=== PATIENT | male | born 1940 | race Caucasian/White ===

== ENCOUNTER 2017-12-20 10:55 | Inpatient (IN) | payer OTHER ==
[2017-12-20 11:09] VITALS: BMI 32.5
--- NOTE | 2017-12-20 11:16 | DR.GIBLEED ---
HPI - Time Seen Time seen: 11:00 - Primary Care Physician Primary Care Physician: STEPHY HEDRICK - Complaints Chief Complaint Doctors Comments: Patient presented to the ED for evaluation of vomiting of bright red blood and black stools for two days. He reports that he had a GI work up due to the hematemesis and dark stools two days ago. Patient states that two days prior he started coughing due to a piece of rich caught in the lower esophagus then the bleeding started. Patient admits to taking ibuprofen and acetaminophen prior to getting his tooth extracted two weeks prior to the UGI. Chief Complaint:: PT. C/O VOMITING BRIGHT RED BLOOD AND HAVING BLACK TARRY STOOLS SINCE YESTERDAY. PT. VOMITING BRIGHT RED BLOOD AT TIME OF ARRIVAL TO ER. DENIES PAIN. - Source History Provided: Patient, EMS - Mode of Arrival Mode of Arrival: EMS - Timing Onset of Chief Complaint: 12/19/17 PMH - PMH Past Medical History: Yes Past Medical History: Diabetes, Hypertension, Kidney Stones Past Surgical History: Yes Surgical History: Tonsillectomy, Other Past Surgical History Comment: PROSTATE SURGERY - Family History History of Family Medical Conditions: Yes Family Medical History: Diabetes Mellitus, Hypertension - Social History Does patient currently use any type of tobacco product: No Have you used tobacco products in the last 12 months: No Type of Tobacco Use: None Does any household member use tobacco: No Alcohol Use: None Do you use any recreational Drugs:: No Lives With: Spouse Lives Where: Home - infectious screening In the last 2 months have you had wt loss of >10#?: NO Have you had fever, night sweats or hemotysis?: No Have you traveled outside the country in the last 6 months?: No Isolation: Standard ROS - Review of Systems Eyes: No Symptoms Reported ENTM: No Symptoms Reported, Hearing Loss Cardiovascular: No Symptoms Reported Gastrointestinal/Abdominal: No Symptoms Reported Genitourinary: No Symptoms Reported Neurological: No Symptoms Reported Musculoskeletal: No Symptoms Reported Integumentary: No Symptoms Reported Hematologic/Lymphatic: No Symptoms Reported Endocrine: No Symptoms Reported Psychiatric: No Symptoms Reported All Other Systems: Reviewed and Negative PE - Vital Signs Vitals: Temperature 97 F Pulse Rate [Apical] 113 Pulse Rate 114 Respiratory Rate 17 Blood Pressure [Left Arm] 119/59 Blood Pressure 132/58 O2 Sat by Pulse Oximetry 95 - General Limitations: No Limitations General Appearance: Alert, Anxious - Head Head Exam: Normal Inspection, Atraumatic - Eyes Eye exam: Normal Appearance, PERRL, EOMI - ENT ENT Exam: Normal Exam - Neck Neck Exam: Normal Inspection, Full ROM - Chest Chest Inspection: Normal Inspection, Symmetric Chest Wall Rise - Cardiovascular Cardiovascular Exam: Regular Rate, Normal Rhythm - Abdominal Exam Abdominal Exam: Normal Inspection, Normal Bowel Sounds Abdominal Tenderness: negative: RUQ, RLQ, LUQ, LLQ, Epigastrium, Suprapubic, Diffuse, Mild, Moderate, Severe, Other - Extremities Extremities Exam: Normal Inspection, Full ROM. negative: Edema - Back Back Exam: Normal Inspection, Full ROM - Neurologic Neurological Exam: Alert, Oriented X3, CN II-XII Intact - Psychiatric Psychiatric Exam: Normal Affect, Normal Mood - Skin Skin Exam: Warm, Dry, Intact Course - Reevaluation 1st: Improved - Consultation Called: 12:10 (Dr Mendez agreed to admit for further treatment) ROR - Labs Reviewed Laboratory Results Reviewed?: Yes Result Diagrams: 12/20/17 11:19 12/20/17 11:19 Laboratory: WBC 16.0 X10^3/uL (3.6-10.0) H 12/20/17 11:19 RBC 2.85 X10^6/uL (4.7-6.0) L 12/20/17 11:19 Hgb 8.2 g/dL (13.5-18.0) L 12/20/17 11:19 Hct 24.2 % (42.0-54.0) L 12/20/17 11:19 MCV 85.0 fL (80.0-100.0) 12/20/17 11:19 MCH 28.6 pg (27.0-34.0) 12/20/17 11:19 MCHC 33.7 g/dL (33.0-35.0) 12/20/17 11:19 RDW 15.6 % (11.6-16.5) 12/20/17 11:19 Plt Count 166 X10^3/uL (150.0-450.0) 12/20/17 11:19 MPV 10.0 fL (7.4-11.0) 12/20/17 11:19 Neut % 58.1 % (42.0-75.0) 12/20/17 11:19 Lymph % 32.9 % (21.0-51.0) 12/20/17 11:19 [place] % 7.7 % (0.0-13.0) 12/20/17 11:19 Eos % 0.1 % (0.9-2.9) L 12/20/17 11:19 Baso % 1.2 % (0.2-1.0) H 12/20/17 11:19 Neut # 9.3 x10^3/uL (2.2-4.8) H 12/20/17 11:19 Lymph # 5.3 X10^3/uL (1.3-2.9) H 12/20/17 11:19 [place] # 1.2 x10^3/uL (0.3-0.8) H 12/20/17 11:19 Eos # 0.0 x10^3/uL (0.0-0.2) 12/20/17 11:19 Baso # 0.2 X10^3/uL (0.0-0.1) H 12/20/17 11:19 Absolute Nucleated RBC 0.0 /100WBC 12/20/17 11:19 INR Target Range - 12/20/17 11:19 INR 1.15 (0.8-1.3) 12/20/17 11:19 PTT 26.7 SECONDS (22.9-36.5) 12/20/17 11:19 PTT Comment - 12/20/17 11:19 Sodium 138 mmol/L (136-145) 12/20/17 11:19 Corrected Sodium 144 mmol/L (136-145) 12/20/17 11:19 Potassium 5.8 mmol/L (3.5-5.1) H 12/20/17 11:19 Chloride 103 mmol/L (98-107) 12/20/17 11:19 Carbon Dioxide 23.0 mmol/L (21-32) 12/20/17 11:19 BUN 82 mg/dL (7-18) H 12/20/17 11:19 Creatinine 1.80 mg/dL (0.70-1.30) H 12/20/17 11:19 Est GFR (MDRD) Af Amer 47 (>60) L 12/20/17 11:19 Est GFR (MDRD) Non-Af 39 (>60) L 12/20/17 11:19 Glucose 359 mg/dL (65-99) H 12/20/17 11:19 Calcium 8.9 mg/dL (8.5-10.1) 12/20/17 11:19 Corrected Calcium 10.2 mg/dL (8.5-10.1) H 12/20/17 11:19 Total Bilirubin 0.40 mg/dL (0.2-1.0) 12/20/17 11:19 AST 33 Units/L (15-37) 12/20/17 11:19 ALT 29 Units/L (12-78) 12/20/17 11:19 Alkaline Phosphatase 71 Units/L (46-116) 12/20/17 11:19 Total Protein 6.2 g/dL (6.4-8.2) L 12/20/17 11:19 Albumin 2.4 g/dL (3.4-5.0) L 12/20/17 11:19 Globulin 3.8 g/dL (2.5-4.5) 12/20/17 11:19 Albumin/Globulin Ratio 0.6 Ratio (1.1-2.1) L 12/20/17 11:19 Stool Description Y 12/20/17 11:23 Stl Occult Blood (IFOB) Positive (NEGATIVE) A 12/20/17 11:23 Blood Type O POSITIVE 12/20/17 11:19 Antibody Screen Negative 12/20/17 11:19 Crossmatch See Detail 12/20/17 11:19 - Diagnosis Discharge Problem: Hyperkalemia, Dehydration GI bleed Qualifiers: GI bleed type/associated pathology: unspecified gastrointestinal hemorrhage type Qualified Code(s): K92.2 - Gastrointestinal hemorrhage, unspecified ARF (acute renal failure) Qualifiers: Acute renal failure type: unspecified Qualified Code(s): N17.9 - Acute kidney failure, unspecified - Discharge Plan Condition: Stable - Follow ups/Referrals Follow ups/Referrals: STEPHY HEDRICK [Primary Care Provider] - 3 days - Instructions
[2017-12-20 11:26] LABS: BASOPHILS # (AUTO) 0.2 X10^3/uL (0.0-0.1); BASOPHILS % (AUTO) 1.2 % (0.2-1.0); EOSINOPHILS % (AUTO) 0.1 % (0.9-2.9); HEMATOCRIT 24.2 % (42.0-54.0); HEMOGLOBIN 8.2 g/dL (13.5-18.0); LYMPHOCYTES # (AUTO) 5.3 X10^3/uL (1.3-2.9); LYMPHOCYTES % (AUTO) 32.9 % (21.0-51.0); MEAN CORPUSCULAR HEMOGLOBIN 28.6 pg (27.0-34.0); MEAN CORPUSCULAR HGB CONC 33.7 g/dL (33.0-35.0); MONOCYTES # (AUTO) 1.2 x10^3/uL (0.3-0.8); MONOCYTES % (AUTO) 7.7 % (0.0-13.0); NEUTROPHILS # (AUTO) 9.3 x10^3/uL (2.2-4.8); NEUTROPHILS % (AUTO) 58.1 % (42.0-75.0); PLATELET COUNT 166 X10^3/uL (150.0-450.0); RED BLOOD COUNT 2.85 X10^6/uL (4.7-6.0); RED CELL DISTRIBUTION WIDTH 15.6 % (11.6-16.5)
[2017-12-20] MEDS ORDERED: ZOFRAN INJ 4 MG VIAL IVP ONE (11:32)
[2017-12-20] MEDS ORDERED: ZOFRAN INJ 4 MG VIAL ONE (11:32)
[2017-12-20] MEDS ORDERED: NS 1000 ML 1,000 ML ONE (11:32)
[2017-12-20] MEDS ORDERED: PROTONIX INJ 40 MG VIAL ONE (11:33)
[2017-12-20] MEDS ORDERED: NS 100 ML IV 100 ML IV ONE (11:33)
[2017-12-20 11:36] LABS: ALBUMIN 2.4 g/dL (3.4-5.0); CALCIUM 8.9 mg/dL (8.5-10.1); COR CA(FOR HYPOALB) 10.2 mg/dL (8.5-10.1); CREATININE 1.8 mg/dL (0.70-1.30); TOTAL PROTEIN 6.2 g/dL (6.4-8.2)
[2017-12-20] MEDS: PROTONIX INJ 40 MG VIAL 80 MG in NS 100 ML IV 80 ML IV SCH ×3 (11:42→21:15)
[2017-12-20] MEDS: NS 1000 ML 1,000 ML IV SCH ×2 (11:42→19:14)
[2017-12-20] MEDS ORDERED: PROVENTIL NEB TX 0.083% 2.5MG/ 3ML ONE (12:36)
[2017-12-20] MEDS ORDERED: PROVENTIL NEB TX 0.083% 2.5MG/ 3ML NEB ONE ×2 (12:37→16:30)
--- NOTE | 2017-12-20 12:42 | CT ---
HISTORY: Hematemesis Study: CT abdomen and pelvis without contrast Comparison: NONE Technique: Multiple axial images of the abdomen and pelvis were obtained from the lung bases to the pubic symphy sis without the administration of IV contrast. Automated exposure control (AEC) was utilized to adju st the MA and/or kV according to patient size. Findings: Interstitial and ground-glass opacities in both lung bases may be secondary to dependent atelectatic changes, chronic interstitial lung disease, mild interstitial pulmonary edema, or atypical infection. Clinical correlation is required. No pleural effusions are seen. Abdomen: Please note that the lack of intravenous contrast limits sensitivity for detection of parenchymal les ions. The liver appears homogeneous without contour deforming masses. The gallbladder is present and nondi stended. There is no intrahepatic or extrahepatic bile duct dilatation. The spleen, pancreas, and b ilateral adrenal glands appear normal. Bilateral renal atrophy is noted. There is a subcentimeter low-density mass within the mid aspect of the right kidney series 3, image 34 which is too small to characterize by CT.. No radiopaque calculi are noted. No hydronephrosis or perinephric fluid collection. Mild wall thickening of the distal esophagus at the GE junction is noted. Stomach is mildly distended with an air-fluid level. Heterogeneous mildly dense material noted within the gastric fundus may be ingested material or could be blood products given patient's history. The small bowel and colon are n ondistended.. The appendix is not identified. There are no inflammatory changes in the pericecal fat . There is diverticulosis of the descending colon. There is subtle haziness and stranding in the adj acent fat, adjacent to the distal descending colon. Mild diverticulitis or colitis is not excluded.. The abdominal aorta is of normal caliber. There is no free fluid or free intraperitoneal air. Pelvis: There is a 5 mm radiopacity along the posterior right bladder wall near the right UVJ. This may repre sent a bladder calculus or a calculus in the right UVJ. The lack of right sided hydronephrosis sugges ts this may be within the bladder lumen.. There is diverticulosis of the sigmoid colon without focal inflammatory changes to suggest acute diverticulitis.. There is no free fluid in the pelvis. No acute osseous abnormalities are identified. IMPRESSION: 1. Mild wall thickening of the distal esophagus at the GE junction is noted. This may be secondary t o esophagitis however a small distal esophageal mass is not entirely excluded. Consider correlation w ith endoscopy or barium swallow as clinically indicated. In addition, there is distention of the stom ach with an air-fluid level and heterogeneous mildly dense material within the lumen. This may be ing ested material or blood products given patient's history. Again, consider correlation with endoscopy as clinically indicated 2.. Diverticulosis of the descending and sigmoid colon. Subtle stranding and haziness of the fat yue cent to the distal descending colon is noted. Mild acute diverticulitis cannot be excluded 3. See other findings as described above. Reported By:
[2017-12-20] MEDS ORDERED: NS 500 ML IV 1,000 ML IV ONE (12:48)
[2017-12-20] MEDS ORDERED: PHENERGAN INJ 25 MG IV PRN (12:58)
[2017-12-20] MEDS: HumuLIN R SUBCUT PRN ×2 (17:05→21:07)
[2017-12-20 18:02] LABS: HEMATOCRIT 25.7 % (42.0-54.0); HEMOGLOBIN 8.7 g/dL (13.5-18.0)
[2017-12-20] MEDS ORDERED: DIPRIVAN VIAL 20 ML ONE (19:11)
[2017-12-20] MEDS ORDERED: PATIENT'S HOME MEDICATION (Metformin Hcl [Metformin Hcl] 1,000 MG) PO SCH (21:00)
[2017-12-20] MEDS: SNACK - Diabetic Appropriate PO SCH (21:11)
[2017-12-20 21:24] LABS: HEMATOCRIT 24.7 % (42.0-54.0); HEMOGLOBIN 8.4 g/dL (13.5-18.0)
[2017-12-20 21:39] LABS: IRON 113 ug/dL (50-175); TOTAL IRON BINDING CAPACITY 398 ug/dL (250-450)
[2017-12-20] MEDS: VALIUM PO PRN (22:44)
[2017-12-21] MEDS: NS 1000 ML 1,000 ML IV SCH ×5 (00:27→17:14)
[2017-12-21 06:14] LABS: BASOPHILS # (AUTO) 0.1 X10^3/uL (0.0-0.1); BASOPHILS % (AUTO) 0.6 % (0.2-1.0); EOSINOPHILS # (AUTO) 0.1 x10^3/uL (0.0-0.2); EOSINOPHILS % (AUTO) 0.5 % (0.9-2.9); HEMATOCRIT 21.8 % (42.0-54.0); HEMOGLOBIN 7.6 g/dL (13.5-18.0); MEAN CORPUSCULAR HEMOGLOBIN 29.8 pg (27.0-34.0); MEAN CORPUSCULAR HGB CONC 34.7 g/dL (33.0-35.0); MEAN PLATELET VOLUME 9.6 fL (7.4-11.0); MONOCYTES % (AUTO) 7.7 % (0.0-13.0); NEUTROPHILS # (AUTO) 8.1 x10^3/uL (2.2-4.8); NEUTROPHILS % (AUTO) 61.2 % (42.0-75.0); PLATELET COUNT 118 X10^3/uL (150.0-450.0); RED BLOOD COUNT 2.53 X10^6/uL (4.7-6.0); RED CELL DISTRIBUTION WIDTH 16.6 % (11.6-16.5); WHITE BLOOD COUNT 13.2 X10^3/uL (3.6-10.0)
[2017-12-21] MEDS: GLUCOTROL PO SCH (06:27)
[2017-12-21] MEDS: HumuLIN R SUBCUT PRN ×2 (06:28→20:52)
[2017-12-21 06:32] LABS: PLATELET MORPHOLOGY COMMENT NORMAL (NORMAL)
[2017-12-21 06:33] LABS: HYPOCHROMASIA 1+; MICROCYTOSIS SLIGHT
[2017-12-21 06:45] LABS: CALCIUM 8.2 mg/dL (8.5-10.1); CARBON DIOXIDE 23.5 mmol/L (21-32); CREATININE 1.63 mg/dL (0.70-1.30); FREE T4 (FREE THYROXINE) 0.83 ng/dL (0.76-1.46); TSH (3RD GENERATION) 2.913 uIU/mL (0.358-3.74)
[2017-12-21] MEDS: PROTONIX INJ 40 MG VIAL 80 MG in NS 100 ML IV 80 ML IV SCH ×2 (07:35→17:14)
[2017-12-21] MEDS ORDERED: ZESTRIL TAB 20 MG ONE (08:03)
[2017-12-21] MEDS ORDERED: GLUCOPHAGE ONE (08:04)
[2017-12-21] MEDS: GLUCOPHAGE PO SCH (08:24)
[2017-12-21] MEDS: ZESTRIL TAB 20 MG PO SCH (08:24)
[2017-12-21] MEDS ORDERED: TRANEXAMIC ACID 1,000 MG in NS 1000 ML 1,000 ML IV SCH ×2 (09:00→13:30)
[2017-12-21] MEDS ORDERED: PATIENT'S HOME MEDICATION (Glipizide [Glipizide 10 Mg] 10 MG) PO SCH (09:00)
[2017-12-21] MEDS: BENADRYL INJ 50 MG VIAL IVP PRN (09:27)
[2017-12-21] MEDS ORDERED: NS 500 ML IV 500 ML IV ONE (10:00)
[2017-12-21] MEDS ORDERED: TRANEXAMIC ACID 1,000 MG in NS 100 ML IV 100 ML IV SCH (13:00)
[2017-12-21 15:08] LABS: HEMATOCRIT 23.4 % (42.0-54.0)
[2017-12-21] MEDS: SNACK - Diabetic Appropriate PO SCH (20:00)
[2017-12-21] MEDS: PROTONIX INJ 40 MG VIAL IVP SCH (20:51)
[2017-12-22] MEDS: NS 1000 ML 1,000 ML IV SCH ×3 (03:20→18:17)
[2017-12-22 06:32] LABS: BASOPHILS % (AUTO) 0.4 % (0.2-1.0); EOSINOPHILS # (AUTO) 0.2 x10^3/uL (0.0-0.2); EOSINOPHILS % (AUTO) 2.5 % (0.9-2.9); HEMATOCRIT 20.9 % (42.0-54.0); HEMOGLOBIN 7.3 g/dL (13.5-18.0); LYMPHOCYTES # (AUTO) 2.9 X10^3/uL (1.3-2.9); MEAN CORPUSCULAR HGB CONC 35.1 g/dL (33.0-35.0); MEAN CORPUSCULAR VOLUME 85.4 fL (80.0-100.0); MEAN PLATELET VOLUME 9.5 fL (7.4-11.0); MONOCYTES # (AUTO) 0.5 x10^3/uL (0.3-0.8); MONOCYTES % (AUTO) 6.6 % (0.0-13.0); NEUTROPHILS # (AUTO) 3.6 x10^3/uL (2.2-4.8); NEUTROPHILS % (AUTO) 50.5 % (42.0-75.0); PLATELET COUNT 88 X10^3/uL (150.0-450.0); RED BLOOD COUNT 2.45 X10^6/uL (4.7-6.0); WHITE BLOOD COUNT 7.2 X10^3/uL (3.6-10.0)
--- NOTE | 2017-12-22 06:45 | RAD ---
HISTORY: Shortness of breath Study: Chest AP portable Comparison: None Findings: The heart is enlarged. Mild pulmonary venous congestion is present. No definite interstitial or alveo lar edema, alveolar infiltrates or pleural effusions are identified. There are some foci of subsegmen tracy atelectasis in the left lower lobe. The bony thorax is unremarkable. IMPRESSION: Cardiomegaly with pulmonary venous congestion No acute infiltrates Reported By:
[2017-12-22 06:50] LABS: ALANINE AMINOTRANSFERASE 32 Units/L (12-78); ALBUMIN 2.2 g/dL (3.4-5.0); ALKALINE PHOSPHATASE 53 Units/L (46-116); ASPARTATE AMINO TRANSFERASE 46 Units/L (15-37); BLOOD UREA NITROGEN 44 mg/dL (7-18); CALCIUM 7.6 mg/dL (8.5-10.1); CARBON DIOXIDE 25.2 mmol/L (21-32); CHLORIDE 111 mmol/L (98-107); CREATININE 1.41 mg/dL (0.70-1.30); SODIUM 144 mmol/L (136-145); TOTAL PROTEIN 5.2 g/dL (6.4-8.2); eGFR BLACK RACES > 60 (>60); eGFR NON BLACK RACES 52 (>60)
[2017-12-22] MEDS: ZESTRIL TAB 20 MG PO SCH (08:07)
[2017-12-22] MEDS: GLUCOPHAGE PO SCH (08:07)
[2017-12-22] MEDS: PROTONIX INJ 40 MG VIAL IVP SCH ×2 (09:15→21:22)
[2017-12-22] MEDS: GLUCOTROL PO SCH (09:15)
[2017-12-22] MEDS ORDERED: LASIX IVP SCH (13:00)
[2017-12-22] MEDS ORDERED: LASIX ONE (13:53)
[2017-12-22 14:28] LABS: BASOPHILS % (AUTO) 0.5 % (0.2-1.0); EOSINOPHILS # (AUTO) 0.2 x10^3/uL (0.0-0.2); EOSINOPHILS % (AUTO) 3.3 % (0.9-2.9); HEMATOCRIT 22.6 % (42.0-54.0); HEMOGLOBIN 7.8 g/dL (13.5-18.0); LYMPHOCYTES # (AUTO) 2.7 X10^3/uL (1.3-2.9); LYMPHOCYTES % (AUTO) 39.5 % (21.0-51.0); MEAN CORPUSCULAR HEMOGLOBIN 29.6 pg (27.0-34.0); MEAN CORPUSCULAR HGB CONC 34.4 g/dL (33.0-35.0); MEAN CORPUSCULAR VOLUME 85.8 fL (80.0-100.0); MEAN PLATELET VOLUME 8.8 fL (7.4-11.0); MONOCYTES # (AUTO) 0.5 x10^3/uL (0.3-0.8); NEUTROPHILS # (AUTO) 3.4 x10^3/uL (2.2-4.8); NEUTROPHILS % (AUTO) 49.7 % (42.0-75.0); PLATELET COUNT 96 X10^3/uL (150.0-450.0); RED BLOOD COUNT 2.63 X10^6/uL (4.7-6.0); RED CELL DISTRIBUTION WIDTH 16.5 % (11.6-16.5); WHITE BLOOD COUNT 6.8 X10^3/uL (3.6-10.0)
[2017-12-22] MEDS: SNACK - Diabetic Appropriate PO SCH (21:22)
[2017-12-23 06:43] LABS: BASOPHILS % (AUTO) 0.5 % (0.2-1.0); EOSINOPHILS # (AUTO) 0.2 x10^3/uL (0.0-0.2); EOSINOPHILS % (AUTO) 2.4 % (0.9-2.9); HEMATOCRIT 21.4 % (42.0-54.0); HEMOGLOBIN 7.5 g/dL (13.5-18.0); LYMPHOCYTES # (AUTO) 2.6 X10^3/uL (1.3-2.9); LYMPHOCYTES % (AUTO) 39.5 % (21.0-51.0); MEAN CORPUSCULAR HEMOGLOBIN 29.8 pg (27.0-34.0); MEAN CORPUSCULAR HGB CONC 34.9 g/dL (33.0-35.0); MEAN CORPUSCULAR VOLUME 85.2 fL (80.0-100.0); MEAN PLATELET VOLUME 9.5 fL (7.4-11.0); MONOCYTES # (AUTO) 0.5 x10^3/uL (0.3-0.8); NEUTROPHILS # (AUTO) 3.3 x10^3/uL (2.2-4.8); NEUTROPHILS % (AUTO) 50.6 % (42.0-75.0); PLATELET COUNT 90 X10^3/uL (150.0-450.0); RED BLOOD COUNT 2.51 X10^6/uL (4.7-6.0); RED CELL DISTRIBUTION WIDTH 16.2 % (11.6-16.5); WHITE BLOOD COUNT 6.6 X10^3/uL (3.6-10.0)
[2017-12-23 07:06] LABS: ANISOCYTOSIS SLIGHT; HYPOCHROMASIA SLIGHT; PLATELET MORPHOLOGY COMMENT NORMAL (NORMAL)
[2017-12-23 07:10] LABS: ALANINE AMINOTRANSFERASE 49 Units/L (12-78); ALBUMIN 2.3 g/dL (3.4-5.0); ALKALINE PHOSPHATASE 72 Units/L (46-116); ASPARTATE AMINO TRANSFERASE 70 Units/L (15-37); BLOOD UREA NITROGEN 27 mg/dL (7-18); CALCIUM 7.6 mg/dL (8.5-10.1); CARBON DIOXIDE 25.8 mmol/L (21-32); CHLORIDE 107 mmol/L (98-107); COR NA(FOR HYPERGLY) 141 mmol/L (136-145); CREATININE 1.25 mg/dL (0.70-1.30); SODIUM 140 mmol/L (136-145); TOTAL PROTEIN 5.6 g/dL (6.4-8.2); eGFR BLACK RACES > 60 (>60); eGFR NON BLACK RACES 60 (>60)
[2017-12-23] MEDS: NS 1000 ML 1,000 ML IV SCH ×2 (07:12→10:46)
[2017-12-23] MEDS ORDERED: GLUCOPHAGE ONE (08:57)
[2017-12-23] MEDS: GLUCOTROL PO SCH (09:10)
[2017-12-23] MEDS: PROTONIX INJ 40 MG VIAL IVP SCH (09:10)
[2017-12-23] MEDS: GLUCOPHAGE PO SCH (09:10)
[2017-12-23] MEDS ORDERED: NS 500 ML IV 500 ML IV ONE (09:44)
[2017-12-23] MEDS: BENADRYL INJ 50 MG VIAL IVP PRN (09:46)
--- NOTE | 2017-12-23 10:03 | RAD ---
HISTORY: Shortness of breath Study: Single-view chest, done portably Comparison: 12/22/2017. Findings: Cardiac monitoring electrodes are noted on the chest. There is [id number] deviation of the trachea secondary to aortic uncoiling. The heart is enlarged. There is mild pulmonary vascular congestion wi thout CHF, edema, infiltrate or pleural fluid. Osseous structures are intact. IMPRESSION: Cardiomegaly with pulmonary vascular congestion. No CHF or infiltrate is seen. Reported By:
[2017-12-23] MEDS: TOBREX LEFTEYE SCH ×2 (11:40→15:48)
[2017-12-23] MEDS ORDERED: LASIX IVP ONE (14:00)
[2017-12-23 14:30] VITALS: BP 116/58
[2017-12-23 16:15] LABS: HEMATOCRIT 25.2 % (42.0-54.0); HEMOGLOBIN 8.7 g/dL (13.5-18.0)
[2017-12-23] MEDS: VALIUM PO PRN (16:48)
[2017-12-26] MEDS ORDERED: DULAGLUTIDE SUBCUT SCH (09:00)
== END 2017-12-23 17:25 | disposition short-term general hospital (02) | DRG 378 ==
LOC: ER 11:09 → ICU 12:46
PROVIDERS: ADMIT Internal Medicine; ATTEND Internal Medicine
PROC: 30233N1 Transfusion of Nonautologous Red Blood Cells into Peripheral Vein, Percutaneous Approach (ICD-10-PCS; 2017-12-20)
PROC: 0DJ08ZZ Inspection of Upper Intestinal Tract, Via Natural or Artificial Opening Endoscopic (ICD-10-PCS; principal; 2017-12-20 19:15)
PROC: 30233N1 Transfusion of Nonautologous Red Blood Cells into Peripheral Vein, Percutaneous Approach (ICD-10-PCS; 2017-12-21)
PROC: 30233N1 Transfusion of Nonautologous Red Blood Cells into Peripheral Vein, Percutaneous Approach (ICD-10-PCS; 2017-12-23)
DX: K92.2 Gastrointestinal hemorrhage, unspecified (principal); K92.0 Hematemesis; N28.9 Disorder of kidney and ureter, unspecified; E87.5 Hyperkalemia; R19.5 Other fecal abnormalities; E11.65 Type 2 diabetes mellitus with hyperglycemia; I10 Essential (primary) hypertension; N17.9 Acute kidney failure, unspecified; R94.31 Abnormal electrocardiogram [ECG] [EKG]; K44.9 Diaphragmatic hernia without obstruction or gangrene; K20.8 Other esophagitis; I85.00 Esophageal varices without bleeding; K22.2 Esophageal obstruction; K29.60 Other gastritis without bleeding; K25.9 Gastric ulcer, unspecified as acute or chronic, without hemorrhage or perforation; R94.4 Abnormal results of kidney function studies
CPT/HCPCS: 36415; 36430; 71045; 74176; 80048; 80053; 82270; 82728; 83540; 83550; 84439; 84443; 85014; 85018; 85025; 85610; 85730; 86850; 86900; 86901; 86922; 87070; 93005; 93010; 94640; 96365; 96367; 96374; 96375; 99100; 99221; 99284; A4222; C9113; P9016; A4217; J1200; J1815; J1940; J2405; J2550; J3490; J7613

== ENCOUNTER 2022-02-25 16:45 | Observation (INO) ==
--- NOTE | 2022-02-25 17:00 | DR.GENAD ---
HPI Time Seen Time Seen by Provider: 02/25/22 16:57 PCP Primary Care Physician: GUALBERTO HERNANDEZ/SURENDRA HOPKINS INHALATION THERAPY AIDE Complaint/Symptoms Chief Complaint Doctors Comments: 81 y/o male brought in via EMS for evaluation. Presents with generalized weakness, back pain. feels he pulled something in his back few days ago. Having dark, tarry stools x past 4-5 days. Vomited once few days ago, thinks he ate something bad then. Denies abdominal pain. Denies chest pain, dyspnea, fever, chills. Chief Complaint:: PT REPORTS BEING WEAK AND HAVING A HX OF GI BLEED, PT REPORTS OVER THE LAST 4-5 DAYS HAVING BLACK TARRY STOOL ( 1) TODAY , PT DENIES ABD PAIN , ONLY SOME BACK PAIN, PT DENIES BLOOD THINNERS OR NSAID USAGE ..BR Self Treatment fo Chief Complaint: TYLENOL COVID-19 Coronavirus risk:travel/contact w/high risk person: No Has patient experienced Coronavirus symptoms: No Source History Provided: Patient and EMS Mode of Arrival Mode of Arrival: EMS Timing Onset of Chief Complaint: 02/22/22 PMH PMH Past Medical History: Yes Past Medical History: Diabetes, Hypertension and Kidney Stones Past Surgical History: Yes Surgical History: Tonsillectomy and Other Family History History of Family Medical Conditions: Yes Family Medical History: Diabetes Mellitus and Hypertension Social History Does patient currently use any type of tobacco product: No Have you used tobacco products in the last 12 months: No Type of Tobacco Use: None Does any household member use tobacco: No Alcohol Use: None Do you use any recreational Drugs:: No Lives With: Family Lives Where: Home Travel Risk Coronavirus risk:travel/contact w/high risk person: No Has patient experienced Coronavirus symptoms: No Infectious screening In the last 2 months have you had wt loss of >10#?: NO Have you had fever, night sweats or hemotysis?: No Have you traveled outside the country in the last 6 months?: No Isolation: Standard ROS Review of Systems Constitutional: Weakness Eyes: No Symptoms Reported ENTM: No Symptoms Reported Respiratoy: No Symptoms Reported Cardiovascular: No Symptoms Reported Gastrointestinal/Abdominal: Other (black stool) Genitourinary: No Symptoms Reported Neurological: Weakness Musculoskeletal: Back Pain Integumentary: No Symptoms Reported Hematologic/Lymphatic: No Symptoms Reported Psychiatric: No Symptoms Reported All Other Systems: Reviewed and Negative PE Vital Signs Vitals: Temperature 97.9 F Pulse Rate 83 Respiratory Rate 22 Blood Pressure [Left Arm] 116/58 Blood Pressure 157/76 O2 Sat by Pulse Oximetry 95 General Limitations: No Limitations General Appearance: Alert and In No Apparent Distress Head Head Exam: Normal Inspection Eyes Eye exam: PERRL and EOMI ENT ENT Exam: Normal Exam and Mucous Membranes Moist Neck Neck Exam: Normal Inspection and Full ROM Chest Chest Inspection: Normal Inspection Respiratory Respiratory Exam: Normal Lung Sounds Bilat; negative Accessory Muscle Use and Respiratory Distress Respiratory Exam: Bilateral: Clear to Auscultation Cardiovascular Cardiovascular Exam: Regular Rate, Normal Rhythm and Normal Heart Sounds Abdominal Exam Abdominal Exam: Normal Inspection, Normal Bowel Sounds and Soft; negative Tenderness Extremities Extremities Exam: Normal Inspection Back Back Exam: Tenderness (paralumbar muscles bilaterally, mild. No midline tenderness.) Neurologic Neurological Exam: Alert, Oriented X3 and CN II-XII Intact; negative Motor Sensory Deficit Psychiatric Psychiatric Exam: Normal Affect Skin Skin Exam: Warm and Dry Other Exam Other Exam: RECTAL - + black, tarry stool. MDM Differential Diagnosis Differential Diagnosis: Upper GI bleed, AVM, diverticular bleed. COURSE Treatment Treatment: 81 y/o male presents with black, tarry stool per rectum. W/u initiate d. Reportedly had Hgb of 12 in the office 4 days ago. Hgb now 9.9. Pt given IV fluids, will add IV protonix. Recommend admission for further observation, and EGD in the am. 1937 - discussed with Dr Prado, covering for Dr Mendez, will admit. ROR Labs Reviewed Laboratory Results Reviewed?: Yes Result Diagrams: 02/25/22 17:18 02/25/22 17:18 Laboratory: WBC 7.4 X10^3/uL (3.6-10.0) 02/25/22 17:18 RBC 2.98 X10^6/uL (4.7-6.0) L 02/25/22 17:18 Hgb 9.9 g/dL (13.5-18.0) L 02/25/22 17:18 Hct 28.4 % (42.0-54.0) L 02/25/22 17:18 MCV 95.3 fL (80.0-100.0) 02/25/22 17:18 MCH 33.3 pg (27.0-34.0) 02/25/22 17:18 MCHC 34.9 g/dL (33.0-35.0) 02/25/22 17:18 RDW 14.5 % (11.6-16.5) 02/25/22 17:18 Plt Count 109 X10^3/uL (150.0-450.0) L 02/25/22 17:18 MPV 9.4 fL (7.4-11.0) 02/25/22 17:18 Neut % (Auto) 52.4 % (42.0-75.0) 02/25/22 17:18 Lymph % (Auto) 36.3 % (21.0-51.0) 02/25/22 17:18 [place] % (Auto) 9.7 % (0.0-13.0) 02/25/22 17:18 Eos % (Auto) 1.2 % (0.9-2.9) 02/25/22 17:18 Baso % (Auto) 0.4 % (0.2-1.0) 02/25/22 17:18 Neut # (Auto) 3.8 x10^3/uL (2.2-4.8) 02/25/22 17:18 Lymph # (Auto) 2.7 X10^3/uL (1.3-2.9) 02/25/22 17:18 [place] # (Auto) 0.7 x10^3/uL (0.3-0.8) 02/25/22 17:18 Eos # (Auto) 0.1 x10^3/uL (0.0-0.2) 02/25/22 17:18 Baso # (Auto) 0.0 X10^3/uL (0.0-0.1) 02/25/22 17:18 Absolute Nucleated RBC 0.1 /100WBC 02/25/22 17:18 PT 15.1 SECONDS (11.8-14.3) 02/25/22 17:18 INR Target Range - 02/25/22 17:18 INR 1.22 (0.8-1.3) 02/25/22 17:18 APTT 31.5 SECONDS (22.9-36.5) 02/25/22 17:18 PTT Comment - 02/25/22 17:18 Sodium 138 mmol/L (136-145) 02/25/22 17:18 Corrected Sodium 138 mmol/L (136-145) 02/25/22 17:18 Potassium 4.6 mmol/L (3.5-5.1) 02/25/22 17:18 Chloride 104 mmol/L (98-107) 02/25/22 17:18 Carbon Dioxide 28.6 mmol/L (21-32) 02/25/22 17:18 BUN 44 mg/dL (7-18) H 02/25/22 17:18 Creatinine 1.47 mg/dL (0.70-1.30) H 02/25/22 17:18 Est GFR (MDRD) Af Amer 59 (>60) 02/25/22 17:18 Est GFR (MDRD) Non-Af 49 (>60) L 02/25/22 17:18 Glucose 119 mg/dL (65-99) H 02/25/22 17:18 Calcium 9.1 mg/dL (8.5-10.1) 02/25/22 17:18 Corrected Calcium 10.5 mg/dL (8.5-10.1) H 02/25/22 17:18 Total Bilirubin 1.10 mg/dL (0.2-1.0) H 02/25/22 17:18 AST 75 Units/L (15-37) H 02/25/22 17:18 ALT 43 Units/L (12-78) 02/25/22 17:18 Alkaline Phosphatase 173 Units/L (46-116) H 02/25/22 17:18 Creatine Kinase 27 Units/L (39-308) L 02/25/22 17:18 CK-MB (CK-2) < 1.0 ng/mL (0-4.0) 02/25/22 17:18 CK/CKMB % Calc 3.7 % (<4) 02/25/22 17:18 Troponin I High Sens 12.4 ng/L (4.0-60.0) 02/25/22 17:18 Total Protein 6.7 g/dL (6.4-8.2) 02/25/22 17:18 Albumin 2.3 g/dL (3.4-5.0) L 02/25/22 17:18 Globulin 4.4 g/dL (2.5-4.5) 02/25/22 17:18 Albumin/Globulin Ratio 0.5 Ratio (1.1-2.1) L 02/25/22 17:18 Lipase 149 Units/L (73-393) 02/25/22 17:18 Stool Description 1g soft dark brown 02/25/22 19:23 Stl Occult Blood (IFOB) Positive (NEGATIVE) A 02/25/22 19:23 Blood Type O POSITIVE 02/25/22 17:18 Antibody Screen Negative 02/25/22 17:18 Other Results Comments: Labs overall acceptable, + anemia, but does not require transfusion at this time. Stool is hemoccult positive. Opioid Opioid Risk Tool Age (Girma box if 16-45): No History of Preadolescent Sexual Abuse: No Total: 0 Total Score Risk Category: Low Risk Copyright: Jeferson TORRES predicting aberrant behaviors Diagnosis Discharge Problem: Acute upper GI bleeding
[2022-02-25] MEDS ORDERED: NS 500 ML IV 500 ML IV ONE ×2 (17:02→17:14)
[2022-02-25 17:30] LABS: BASOPHILS % (AUTO) 0.4 % (0.2-1.0); EOSINOPHILS # (AUTO) 0.1 x10^3/uL (0.0-0.2); HEMOGLOBIN 9.9 g/dL (13.5-18.0); LYMPHOCYTES # (AUTO) 2.7 X10^3/uL (1.3-2.9); MONOCYTES # (AUTO) 0.7 x10^3/uL (0.3-0.8)
[2022-02-25 17:35] LABS: EOSINOPHILS % (AUTO) 1.2 % (0.9-2.9); HEMATOCRIT 28.4 % (42.0-54.0); LYMPHOCYTES % (AUTO) 36.3 % (21.0-51.0); MEAN CORPUSCULAR HEMOGLOBIN 33.3 pg (27.0-34.0); MEAN CORPUSCULAR HGB CONC 34.9 g/dL (33.0-35.0); MEAN CORPUSCULAR VOLUME 95.3 fL (80.0-100.0); MEAN PLATELET VOLUME 9.4 fL (7.4-11.0); MONOCYTES % (AUTO) 9.7 % (0.0-13.0); NEUTROPHILS # (AUTO) 3.8 x10^3/uL (2.2-4.8); NEUTROPHILS % (AUTO) 52.4 % (42.0-75.0); RED BLOOD COUNT 2.98 X10^6/uL (4.7-6.0); RED CELL DISTRIBUTION WIDTH 14.5 % (11.6-16.5); WHITE BLOOD COUNT 7.4 X10^3/uL (3.6-10.0)
[2022-02-25 17:56] LABS: ALANINE AMINOTRANSFERASE 43 Units/L (12-78); ALBUMIN 2.3 g/dL (3.4-5.0); ALKALINE PHOSPHATASE 173 Units/L (46-116); ASPARTATE AMINO TRANSFERASE 75 Units/L (15-37); BLOOD UREA NITROGEN 44 mg/dL (7-18); CALCIUM 9.1 mg/dL (8.5-10.1); CARBON DIOXIDE 28.6 mmol/L (21-32); CHLORIDE 104 mmol/L (98-107); CKMB % 3.7 % (<4); COR CA(FOR HYPOALB) 10.5 mg/dL (8.5-10.1); COR NA(FOR HYPERGLY) 138 mmol/L (136-145); CREATINE KINASE 27 Units/L (39-308); CREATINE KINASE MB < 1.0 ng/mL (0-4.0); CREATININE 1.47 mg/dL (0.70-1.30); LIPASE 149 Units/L (73-393); SODIUM 138 mmol/L (136-145); TOTAL PROTEIN 6.7 g/dL (6.4-8.2); eGFR NON BLACK RACES 49 (>60)
[2022-02-25] MEDS ORDERED: PROTONIX INJ 40 MG VIAL IVP ONE (19:36)
[2022-02-25] MEDS ORDERED: PROTONIX INJ 40 MG VIAL ONE (20:05)
[2022-02-25] MEDS ORDERED: ZOFRAN INJ 4 MG VIAL IVP PRN (20:51)
[2022-02-25] MEDS ORDERED: GLUCOPHAGE ONE (21:58)
[2022-02-25] MEDS: GLUCOPHAGE PO SCH (22:00)
[2022-02-25] MEDS: NS 1,000 ML IV 1,000 ML IV SCH (22:14)
[2022-02-26 04:36] LABS: ALANINE AMINOTRANSFERASE 32 Units/L (12-78); ALBUMIN 2.1 g/dL (3.4-5.0); ALKALINE PHOSPHATASE 150 Units/L (46-116); ASPARTATE AMINO TRANSFERASE 62 Units/L (15-37); BLOOD UREA NITROGEN 39 mg/dL (7-18); CALCIUM 8.8 mg/dL (8.5-10.1); CARBON DIOXIDE 25.5 mmol/L (21-32); CHLORIDE 107 mmol/L (98-107); COR CA(FOR HYPOALB) 10.3 mg/dL (8.5-10.1); CREATININE 1.33 mg/dL (0.70-1.30); SODIUM 140 mmol/L (136-145); eGFR NON BLACK RACES 55 (>60)
[2022-02-26 04:44] LABS: BASOPHILS % (AUTO) 0.4 % (0.2-1.0); EOSINOPHILS # (AUTO) 0.1 x10^3/uL (0.0-0.2); EOSINOPHILS % (AUTO) 1.6 % (0.9-2.9); HEMATOCRIT 25.8 % (42.0-54.0); HEMOGLOBIN 9.1 g/dL (13.5-18.0); LYMPHOCYTES # (AUTO) 2.4 X10^3/uL (1.3-2.9); LYMPHOCYTES % (AUTO) 38.3 % (21.0-51.0); MEAN CORPUSCULAR HEMOGLOBIN 33.5 pg (27.0-34.0); MEAN CORPUSCULAR HGB CONC 35.2 g/dL (33.0-35.0); MEAN CORPUSCULAR VOLUME 95.2 fL (80.0-100.0); MEAN PLATELET VOLUME 9.9 fL (7.4-11.0); MONOCYTES # (AUTO) 0.6 x10^3/uL (0.3-0.8); MONOCYTES % (AUTO) 9.9 % (0.0-13.0); NEUTROPHILS # (AUTO) 3.2 x10^3/uL (2.2-4.8); NEUTROPHILS % (AUTO) 49.8 % (42.0-75.0); RED BLOOD COUNT 2.71 X10^6/uL (4.7-6.0); WHITE BLOOD COUNT 6.4 X10^3/uL (3.6-10.0)
[2022-02-26] MEDS: GLUCOPHAGE PO SCH (08:10)
[2022-02-26] MEDS: INDERAL TAB 10 MG PO SCH (08:10)
[2022-02-26 08:39] VITALS: BMI 30.3
[2022-02-26 08:42] LABS: BASOPHILS % (AUTO) 0.5 % (0.2-1.0); EOSINOPHILS # (AUTO) 0.1 x10^3/uL (0.0-0.2); EOSINOPHILS % (AUTO) 1.6 % (0.9-2.9); HEMATOCRIT 27.2 % (42.0-54.0); HEMOGLOBIN 9.4 g/dL (13.5-18.0); LYMPHOCYTES # (AUTO) 1.9 X10^3/uL (1.3-2.9); LYMPHOCYTES % (AUTO) 32.1 % (21.0-51.0); MEAN CORPUSCULAR HGB CONC 34.5 g/dL (33.0-35.0); MEAN CORPUSCULAR VOLUME 95.4 fL (80.0-100.0); MEAN PLATELET VOLUME 8.6 fL (7.4-11.0); MONOCYTES # (AUTO) 0.5 x10^3/uL (0.3-0.8); MONOCYTES % (AUTO) 8.7 % (0.0-13.0); NEUTROPHILS # (AUTO) 3.3 x10^3/uL (2.2-4.8); NEUTROPHILS % (AUTO) 57.1 % (42.0-75.0); RED BLOOD COUNT 2.85 X10^6/uL (4.7-6.0); RED CELL DISTRIBUTION WIDTH 14.6 % (11.6-16.5); WHITE BLOOD COUNT 5.8 X10^3/uL (3.6-10.0)
[2022-02-26] MEDS: PROTONIX INJ 40 MG VIAL IVP SCH ×2 (08:42→20:49)
[2022-02-26] MEDS ORDERED: PROTONIX INJ 40 MG VIAL IVP SCH (09:00)
--- NOTE | 2022-02-26 09:39 | RAD ---
HISTORYShortness of breathSTUDYChest AP portableCOMPARISONCT chest without contrast 09/30/2021FINDINGSPatient is rotated to the right. Heart size is mildly enlarged. No congestive heart failure is noted. Diffuse chronic appearing interstitial lung changes are present bilaterally. A superimposed alveolar infiltrate in the right midlung may also be present. Follow-up with upright PA and lateral non rotated chest x-ray is recommended. No pleural effusions are identified. Bony thorax is unremarkable.IMPRESSIONCardiomegaly without congestive heart failureDiffuse chronic interstitial lung changesPossible right midlung alveolar infiltrates superimposed on the chronic changes. Recommend follow-up with upright PA and lateral non rotated chest examinationElectronically signed by: STEPHANI ATKINS (February 26, 2022 09:38:37)
--- NOTE | 2022-02-26 09:45 | DR.H&P ---
H&P - History & Physical for Day of: H&P Date: 02/25/22 - Chief Complaint Chief Complaint: weakness, black tarry stool, back pain - History of Present Illness History of Present Illness: 81 y/o male brought in via EMS for evaluation. Presents with generalized weakness, back pain. feels he pulled something in his back few days ago. Having dark, tarry stools x past 4-5 days. Vomited once few days ago, thinks he ate something bad then. Pt has PMH of DM, esophageal varices, htn, oa. Pt admitted for treatment of acute illness. - Past Medical History Past Medical History: Hypertension, Diabetes, Kidney Stones Additional Medical History: thrombocytopenia - Past Surgical History Surgical History: Tonsillectomy Additional Surgical History: prostate - Family History Family Medical History: Diabetes Mellitus, Cancer, [place], Hypertension - Social History Does patient currently use any type of tobacco product: No Have you used tobacco products in the last 12 months: No Type of Tobacco Use: None Does any household member use tobacco: No Alcohol Use: None Drug Use: None - Medications Home Medications: No Known Drug Allergies Allergy (Verified 02/25/22 17:49) CONTINUE taking the following medications pantoprazole 40 mg PO DAILY 02/25/22 [History] propranolol 10 mg PO DAILY 02/25/22 [History] - Review of Systems Constitutional: Weakness, Malaise Eyes: No Symptoms Reported ENT: No Symptoms Reported Respiratory: SOB with Excertion Cardiovascular: Edema Gastrointestinal: Nausea, Vomiting, Diarrhea, Melena Genitourinary: No Symptoms Reported Musculoskeletal: Back Pain Skin: No Symptoms Reported Neurological: Weakness - Physical Exam Vital Signs: Temperature 98.9 F Pulse Rate [Left Radial] 66 Pulse Rate 83 Respiratory Rate 20 Blood Pressure [Right Arm] 134/61 Blood Pressure [Left Arm] 116/58 Blood Pressure 157/76 O2 Sat by Pulse Oximetry 93 Oriented: Normal Eyes: Normal Ear: Normal Nose: Normal Throat: Normal Respiratory: RLL Diminished, LLL Diminished Cardiovascular: Murmur, Edema : Normal Auscultation: Bowel Sounds: Increased Tenderness: Mild (right flank tenderness) Musculoskeletal: Back:Thoracic, Back:Lumbar Psychiatric: Anxiety Affect: Anxious Speech Pattern: Clear, Appropriate - Assessment/Plan (1) GI bleed Qualifiers: GI bleed type/associated pathology: unspecified gastrointestinal hemorrhage type Qualified Code(s): K92.2 - Gastrointestinal hemorrhage, unspecified Status: Acute Plan: ADMIT, GI CONSULT. PPI THERAPY, STRICT I&OS. BP AND CARDIAC MONITORING. OCCULT STOOL (2) Anemia Status: Acute (3) Hypertension Status: Acute (4) Diabetes Status: Acute (5) Dehydration Status: Acute - Allergies Allergies/Adverse Reactions: Allergies Allergy/AdvReac Type Severity Reaction Status Date / Time No Known Drug Allergies Allergy Verified 02/25/22 17:49
--- NOTE | 2022-02-26 10:35 | CT ---
HISTORYABD PAIN, UPPER GI BLEEDSTUDYABDOMEN/PELVIS W/O CONCOMPARISONNone availableTECHNIQUEMultiple axial images of the abdomen and pelvis were obtained from the lung bases to the pubic symphysis without the administration of IV contrast. Dose reduction techniques including Automated Exposure Control (AEC) and adjustment of mA and kV were utilized.FINDINGS[5 mm fissural nodule within the lingula on axial image 7. 8 mm nodule within the medial left lower lobe on axial image 13. There is low lung volumes and chronic bronchiectasis and reticulation within the visualized lung bases. Heart size is normal with moderate calcification of the mitral and aortic valves. Calcified atherosclerotic disease of coronary arteries.No focal hepatic lesion. Liver has a borderline cirrhotic morphology. Gallbladder contains a few layering stones and sludge without significant pericholecystic fluid. Bile ducts, spleen, pancreas and adrenal glands are normal. Complex mass within the right kidney measuring approximately 4.5 x 4.2 cm on axial image 45. Small cyst projects from the posterior aspect of the right kidney. No nephrolithiasis or hydronephrosis within the right kidney. Left kidney demonstrates cortical atrophy without mass, nephrolithiasis or hydronephrosis. Upper GI tract demonstrates mild thickening of the stomach and distal esophagus. No evidence of mass or obstruction. Urinary bladder is normal. No pelvic or adnexal mass. The rectum is normal. Distal colonic diverticulosis without evidence of acute diverticulitis. Terminal ileum is normal. Moderate amount of perihepatic, perisplenic and pelvic free fluid. Abdominal aorta is normal in caliber with scattered calcified atherosclerotic disease. Review of bone windows demonstrates no acute osseous abnormality.IMPRESSIONComplex mass measuring 4.5 x 4.2 cm projection from the midpole the right kidney raises concern for underlying neoplasm, correlation with contrast enhanced abdominal MRI is recommended for further evaluation.Borderline cirrhosis with moderate amount of free fluid throughout the abdomen pelvis. No focal hepatic lesion. Correlate with patient history LFTs and hepatitis serology.Cholelithiasis without CT evidence of acute cholecystitis.Moderate colonic diverticulosis without evidence of acute diverticulitis.Mild thickening of the distal esophagus and proximal stomach, correlate for signs of esophagitis, gastritis and/or peptic ulcer disease.5 mm perifissural nodule within the lingula and 8 mm subpleural nodule within left lower lobe. I do not appreciate either nodule on CT examination from 09/30/2021. Short-term follow-up chest CT in 3 months is recommended for surveillance.Additional incidental, nonacute findings as described above.Electronically signed by: SHANTANU LOPEZ (February 26, 2022 10:34:52)
[2022-02-26] MEDS: NS 1,000 ML IV 1,000 ML IV SCH ×3 (11:23→23:55)
[2022-02-26] MEDS ORDERED: NS 1,000 ML IV 1,000 ML ONE (14:44)
[2022-02-26] MEDS ORDERED: DIPRIVAN VIAL 20 ML ONE (14:51)
[2022-02-27 00:19] LABS: BILIRUBIN,URINE NEGATIVE (NEGATIVE); BLOOD/HEMOGLOBIN,URINE NEGATIVE (NEGATIVE); GLUCOSE, URINE NEGATIVE (NEGATIVE); KETONES,URINE NEGATIVE (NEGATIVE); LEUKOCYTE ESTERASE ,URINE NEGATIVE (NEGATIVE); NITRITES,URINE NEGATIVE (NEGATIVE); PROTEIN,URINE NEGATIVE (NEGATIVE); UROBILINOGEN,URINE 1+ (NORMAL)
[2022-02-27 00:25] LABS: APPEARANCE,URINE CLEAR (CLEAR); BACTERIA,URINE TRACE /HPF (NEGATIVE); COLOR,URINE YELLOW (YELLOW); RBC,URINE NONE SEEN /HPF (0-3); SQUAMOUS EPITHELIAL CELL,UR FEW /HPF (NEGATIVE)
[2022-02-27] MEDS ORDERED: TYLENOL 325 MG TAB PO PRN (03:37)
[2022-02-27] MEDS: PROTONIX INJ 40 MG VIAL IVP SCH (08:31)
[2022-02-27] MEDS: INDERAL TAB 10 MG PO SCH (08:31)
[2022-02-27 08:52] LABS: BASOPHILS % (AUTO) 0.5 % (0.2-1.0); EOSINOPHILS # (AUTO) 0.1 x10^3/uL (0.0-0.2); EOSINOPHILS % (AUTO) 2.1 % (0.9-2.9); HEMATOCRIT 25.5 % (42.0-54.0); HEMOGLOBIN 8.8 g/dL (13.5-18.0); LYMPHOCYTES # (AUTO) 1.9 X10^3/uL (1.3-2.9); LYMPHOCYTES % (AUTO) 41.7 % (21.0-51.0); MEAN CORPUSCULAR HEMOGLOBIN 33.3 pg (27.0-34.0); MEAN CORPUSCULAR HGB CONC 34.7 g/dL (33.0-35.0); MEAN PLATELET VOLUME 9.5 fL (7.4-11.0); MONOCYTES # (AUTO) 0.4 x10^3/uL (0.3-0.8); MONOCYTES % (AUTO) 8.9 % (0.0-13.0); NEUTROPHILS # (AUTO) 2.2 x10^3/uL (2.2-4.8); NEUTROPHILS % (AUTO) 46.8 % (42.0-75.0); RED BLOOD COUNT 2.65 X10^6/uL (4.7-6.0); WHITE BLOOD COUNT 4.6 X10^3/uL (3.6-10.0)
[2022-02-27 09:00] LABS: ALANINE AMINOTRANSFERASE 28 Units/L (12-78); ALBUMIN 2.1 g/dL (3.4-5.0); ALKALINE PHOSPHATASE 146 Units/L (46-116); ASPARTATE AMINO TRANSFERASE 54 Units/L (15-37); BLOOD UREA NITROGEN 32 mg/dL (7-18); CALCIUM 8.4 mg/dL (8.5-10.1); CARBON DIOXIDE 26.5 mmol/L (21-32); CHLORIDE 107 mmol/L (98-107); COR CA(FOR HYPOALB) 9.9 mg/dL (8.5-10.1); CREATININE 1.36 mg/dL (0.70-1.30); SODIUM 141 mmol/L (136-145); TOTAL PROTEIN 6.1 g/dL (6.4-8.2); eGFR NON BLACK RACES 54 (>60)
[2022-02-27] MEDS ORDERED: ATIVAN INJ 2 MG VIAL IVP ONE (11:00)
[2022-02-27] MEDS: NS 1,000 ML IV 1,000 ML IV SCH (12:30)
--- NOTE | 2022-02-27 14:02 | MRI ---
MRI ABDOMEN W/WO CONTRASTClinical indication: Right renal massProcedure: Multiplanar multi sequence MRI of the abdomen were obtained with and without the administration of intravenous contrast according to standard departmental protocol.Contrast: 75 cc of Omni henceComparisons:CT February 26, 2022Findings: Examination is severely compromised by patient motion.MRI of the abdomen without contrast: No significant iron or fat deposition in the liver or spleen. Small volume ascites.MRI of the abdomen with contrast: Cirrhotic morphology of the liver. Borderline splenomegaly. No focal lesions. Gallbladder is present. No gallstones. No filling defects within the common bile duct. No ductal dilatation. Pancreas demonstrates normal T1 signal. No pancreatic masses. Adrenal glands are normal. Markedly irregular right renal mass measuring 4.4 cm and demonstrating internal enhancement. No hydronephrosis. No suspicious lymph nodes.Impression:1.Right renal mass is highly concerning for renal cell carcinoma.Electronically signed by: KRYSTEN SUÁREZ (February 27, 2022 14:00:32)
[2022-02-27 16:09] VITALS: BP 141/65
== END 2022-02-27 17:40 | disposition home health service (06) ==
LOC: MED/SURG 16:45 → ER 16:45 → MED/SURG 20:44
PROVIDERS: ADMIT Obstetrics & Gynecology Obstetrics; ATTEND Internal Medicine

== ENCOUNTER 2022-03-06 11:26 | Observation (INO) ==
[2022-03-06] MEDS ORDERED: MORPHINE SULFATE INJ 2 MG INJ IVP PRN (12:05)
--- NOTE | 2022-03-06 12:16 | DR.H&P ---
H&P - History & Physical for Day of: H&P Date: 03/06/22 - Chief Complaint Chief Complaint: passing blood in stool, vomiting blackish-brown liquid this morning, weakness - History of Present Illness History of Present Illness: PT IS 81 WM DIRECT ADMIT FROM DR BURCIAGA OFFICE AFTER PRESENTING WITH CO WEAKNESS, PASSING BLOOD IN STOOL. PT REPORTS WOKE UP WITH VOMITING COFFEE GROUND EMESIS. PT CO WEAKNESS, SOB ON EXERTION. PT WAS RECENTLY IN [facility] FOR GI BLEED. PT HAS RECENT DX OF RENAL MASS, AWAITING EVALUATION APPOITMENT. PT HAS PMH OF GERD, COPD, OA, ESOPHAGEAL VARICES. - Past Medical History Past Medical History: Hypertension, Diabetes, Kidney Stones Additional Medical History: thrombocytopenia - Past Surgical History Surgical History: Tonsillectomy Additional Surgical History: prostate - Family History Family Medical History: Diabetes Mellitus, Cancer, NH, Hypertension - Social History Does patient currently use any type of tobacco product: No Have you used tobacco products in the last 12 months: No Type of Tobacco Use: None Does any household member use tobacco: No Alcohol Use: None Drug Use: None Risks, benefits, and alternatives of opioids discussed: No Prescription drug monitoring program results: PDMP reviewed and no concerns identified - Medications Home Medications: No Known Drug Allergies Allergy (Verified 02/25/22 17:49) - Review of Systems Constitutional: Weakness Eyes: No Symptoms Reported ENT: No Symptoms Reported Respiratory: No Symptoms Reported Cardiovascular: No Symptoms Reported Gastrointestinal: Nausea, Vomiting, Diarrhea, Melena, Hematochezia Genitourinary: Incontinence Musculoskeletal: Back Pain Skin: Bruising Neurological: Weakness - Physical Exam Vital Signs: Blood Pressure [Right Arm] 141/65 Oriented: Normal Eyes: Normal Ear: Normal Nose: Normal Throat: Normal Respiratory: RLL Diminished, LLL Diminished Cardiovascular: Normal, Murmur, Edema : Normal Auscultation: Bowel Sounds: Normal Palpation: Normal Tenderness: Diffuse Skin: Decreased Turgur, Bruising, Ecchymosis Musculoskeletal: Back:Thoracic, Back:Lumbar, Motor Deficit Psychiatric: Anxiety Affect: Anxious Speech Pattern: Clear, Appropriate - Assessment/Plan (1) GI bleed Qualifiers: GI bleed type/associated pathology: unspecified gastrointestinal hemorrhage type Qualified Code(s): K92.2 - Gastrointestinal hemorrhage, unspecified Status: Acute Plan: ADMIT, OCCULT STOOL AND GASTROCULT IF VOMITING, PPI THERAPY. ADMISSION LABS, CXR ON ADMISSION. UA, NAUSEA CONTROL, TYPE AND SCREEN, CARDIAC MONITORING. BP MONITORING (2) Shortness of breath Status: Acute (3) Renal mass Status: Acute (4) Anemia Status: Acute (5) Diabetes Status: Acute - Allergies Allergies/Adverse Reactions: Allergies Allergy/AdvReac Type Severity Reaction Status Date / Time No Known Drug Allergies Allergy Verified 02/25/22 17:49
[2022-03-06 12:44] LABS: BASOPHILS % (AUTO) 0.3 % (0.2-1.0); EOSINOPHILS % (AUTO) 0.3 % (0.9-2.9); HEMATOCRIT 21.4 % (42.0-54.0); HEMOGLOBIN 7.5 g/dL (13.5-18.0); LYMPHOCYTES # (AUTO) 3.1 X10^3/uL (1.3-2.9); LYMPHOCYTES % (AUTO) 33.9 % (21.0-51.0); MEAN CORPUSCULAR HEMOGLOBIN 33.4 pg (27.0-34.0); MEAN CORPUSCULAR VOLUME 95.5 fL (80.0-100.0); MONOCYTES # (AUTO) 0.8 x10^3/uL (0.3-0.8); MONOCYTES % (AUTO) 8.8 % (0.0-13.0); NEUTROPHILS # (AUTO) 5.2 x10^3/uL (2.2-4.8); NEUTROPHILS % (AUTO) 56.7 % (42.0-75.0); RED BLOOD COUNT 2.24 X10^6/uL (4.7-6.0); RED CELL DISTRIBUTION WIDTH 14.8 % (11.6-16.5); WHITE BLOOD COUNT 9.1 X10^3/uL (3.6-10.0)
[2022-03-06 12:55] LABS: ALBUMIN 2.2 g/dL (3.4-5.0); CALCIUM 8.7 mg/dL (8.5-10.1); CARBON DIOXIDE 26.2 mmol/L (21-32); COR CA(FOR HYPOALB) 10.1 mg/dL (8.5-10.1); CREATININE 1.47 mg/dL (0.70-1.30); TOTAL PROTEIN 6.3 g/dL (6.4-8.2)
[2022-03-06] MEDS ORDERED: NS 1,000 ML IV 1,000 ML IV SCH (13:00)
[2022-03-06] MEDS ORDERED: ZOFRAN INJ 4 MG VIAL IVP PRN (13:21)
[2022-03-06] MEDS: PROTONIX INJ 40 MG VIAL IVP SCH ×2 (13:31→20:35)
[2022-03-06 14:12] VITALS: BMI 29.9
--- NOTE | 2022-03-06 14:29 | RAD ---
HISTORYSOB, ANEMIA, WEAKNESS DM, HX OF PROSTATE CX, PSH:PROSTATE, TONSILSSTUDYCHEST, 1 [id number]/04/2022.FINDINGSHeart size is enlarged. Pulmonary blood flow is congested. There is coarsening of the interstitial markings suggestive of chronic interstitial lung disease. A component interstitial edema is possible. There is no convincing pleural effusion.IMPRESSIONNothing acute. Chronic interstitial disease..Electronically signed by: Jose Carlos Thomson (March 06, 2022 14:28:32)
[2022-03-06] MEDS ORDERED: NS 500 ML IV 500 ML IV ONE (16:49)
[2022-03-06] MEDS ORDERED: BENADRYL INJ 50 MG VIAL IVP PRN (16:49)
[2022-03-06] MEDS ORDERED: NS 250 ML IV 250 ML IV ONE (21:45)
[2022-03-06 21:48] LABS: BILIRUBIN,URINE NEGATIVE (NEGATIVE); BLOOD/HEMOGLOBIN,URINE NEGATIVE (NEGATIVE); GLUCOSE, URINE NEGATIVE (NEGATIVE); KETONES,URINE NEGATIVE (NEGATIVE); LEUKOCYTE ESTERASE ,URINE NEGATIVE (NEGATIVE); NITRITES,URINE NEGATIVE (NEGATIVE); PROTEIN,URINE NEGATIVE (NEGATIVE); UROBILINOGEN,URINE NORMAL (NORMAL)
[2022-03-06 21:50] LABS: APPEARANCE,URINE CLEAR (CLEAR); COLOR,URINE YELLOW (YELLOW)
[2022-03-07 05:59] LABS: BASOPHILS # (AUTO) 0.1 X10^3/uL (0.0-0.1); BASOPHILS % (AUTO) 0.8 % (0.2-1.0); EOSINOPHILS # (AUTO) 0.1 x10^3/uL (0.0-0.2); EOSINOPHILS % (AUTO) 0.8 % (0.9-2.9); HEMATOCRIT 22.6 % (42.0-54.0); LYMPHOCYTES % (AUTO) 37.7 % (21.0-51.0); MEAN CORPUSCULAR HEMOGLOBIN 33.5 pg (27.0-34.0); MEAN CORPUSCULAR HGB CONC 36.1 g/dL (33.0-35.0); MEAN CORPUSCULAR VOLUME 92.9 fL (80.0-100.0); MEAN PLATELET VOLUME 9.1 fL (7.4-11.0); MONOCYTES # (AUTO) 0.8 x10^3/uL (0.3-0.8); MONOCYTES % (AUTO) 10.8 % (0.0-13.0); NEUTROPHILS # (AUTO) 3.9 x10^3/uL (2.2-4.8); NEUTROPHILS % (AUTO) 49.9 % (42.0-75.0); RED BLOOD COUNT 2.44 X10^6/uL (4.7-6.0); RED CELL DISTRIBUTION WIDTH 15.1 % (11.6-16.5); WHITE BLOOD COUNT 7.9 X10^3/uL (3.6-10.0)
[2022-03-07 06:00] LABS: HEMOGLOBIN 8.2 g/dL (13.5-18.0)
[2022-03-07 06:18] LABS: ALANINE AMINOTRANSFERASE 24 Units/L (12-78); ALKALINE PHOSPHATASE 126 Units/L (46-116); ASPARTATE AMINO TRANSFERASE 44 Units/L (15-37); BLOOD UREA NITROGEN 51 mg/dL (7-18); CALCIUM 8.3 mg/dL (8.5-10.1); CARBON DIOXIDE 26.6 mmol/L (21-32); CHLORIDE 107 mmol/L (98-107); COR CA(FOR HYPOALB) 9.9 mg/dL (8.5-10.1); CREATININE 1.51 mg/dL (0.70-1.30); SODIUM 140 mmol/L (136-145); TOTAL PROTEIN 5.6 g/dL (6.4-8.2); eGFR NON BLACK RACES 47 (>60)
--- NOTE | 2022-03-07 08:40 | RAD ---
HISTORYSOB abdominal painSTUDYAP [id number]/12/2022FINDINGSMild stable cardiomegaly. Widened mediastinum is attributed to portable technique and patient rotation. No change in the coarsened interstitial pattern without evidence for superimposed airspace disease, pneumothorax or pleural fluid.IMPRESSIONNo interval change or acute abnormality noted. See above.Electronically signed by: SAMRA RODNEY (March 07, 2022 08:38:22)
--- NOTE | 2022-03-07 08:41 | RAD ---
HISTORYSOB GI bleedingSTUDYKUBCOMPARISONCT abdomen 02/26/2022FINDINGSSubmitted abdomen images significantly limited technically. The extreme upper abdomen and both flanks are incompletely visualized.The intestinal gas pattern is nonspecific. There is no evidence for ileus or obstruction. Visceral outlines are obscured. No ascites or obvious calcification demonstrated.IMPRESSIONNo significant or acute findings. See above significant technical limitation.Electronically signed by: SAMRA RODNEY (March 07, 2022 08:40:18)
[2022-03-07 13:14] VITALS: BP 125/60
== END 2022-03-07 14:56 | disposition short-term general hospital (02) ==
LOC: MED/SURG
PROVIDERS: ADMIT Internal Medicine; ATTEND Internal Medicine
DX: N28.89 Other specified disorders of kidney and ureter; R26.89 Other abnormalities of gait and mobility; E80.6 Other disorders of bilirubin metabolism; M19.90 Unspecified osteoarthritis, unspecified site; K21.9 Gastro-esophageal reflux disease without esophagitis; R53.1 Weakness; R10.84 Generalized abdominal pain; J44.9 Chronic obstructive pulmonary disease, unspecified; Z85.46 Personal history of malignant neoplasm of prostate; D64.89 Other specified anemias; Z20.822 Contact with and (suspected) exposure to COVID-19; K92.2 Gastrointestinal hemorrhage, unspecified; E11.65 Type 2 diabetes mellitus with hyperglycemia; I10 Essential (primary) hypertension; R06.02 Shortness of breath

== ENCOUNTER 2022-05-13 14:40 | Observation (INO) ==
[2022-05-13] MEDS ORDERED: ZOFRAN INJ 4 MG VIAL IVP PRN (17:41)
--- NOTE | 2022-05-13 17:46 | DR.H&P ---
H&P - History & Physical for Day of: H&P Date: 05/13/22 - Chief Complaint Chief Complaint: WEAKNESS, SOB, LEG SWELLING - History of Present Illness History of Present Illness: PT IS 81 WM DIRECT ADMIT WITH INCREASED WEAKNESS, MARKED LOWER LEG EDEMA AND INCREASED SOB. PT HAD DECREASED GFR AND ELEVATED LFTS ON OUTPT LABS WITH REPORTS OF INCREASD ABDOMINAL SWELLING, CONCERNED FOR ASCITES. PT HAS PMH OF RIGHT RENAL MASS, PENDING SURGICAL INTERVENTION, DELAYED DUE TO WEAKNESS AND ANEMIA. PT HAS PMH DM, ESOPHAGEAL VARICES AND ANEMIA. PT ADMITTED FOR TREATMENT OF ACUTE ON CHRONIC EXACERATION. - Past Medical History Past Medical History: Anemia, Arthritis, Diabetes, Hypertension, Kidney Stones, Liver Disease, Renal Disease (RIGHT RENAL MASS) Additional Medical History: thrombocytopenia, ESOPHAGEAL VARICES - Past Surgical History Surgical History: Bowel Resection, Tonsillectomy Additional Surgical History: prostate - Family History Family Medical History: Cancer, Heart Failure - Social History Does patient currently use any type of tobacco product: No Have you used tobacco products in the last 12 months: No Type of Tobacco Use: None Does any household member use tobacco: No Alcohol Use: None Drug Use: None - Medications Home Medications: No Known Drug Allergies Allergy (Verified 05/02/22 18:56) - Review of Systems Constitutional: Weakness, Malaise Eyes: No Symptoms Reported Respiratory: Shortness of Breath, SOB with Excertion Cardiovascular: Edema, Light Headedness Gastrointestinal: Nausea, Other (POOR APPETITE) Genitourinary: Incontinence Musculoskeletal: Back Pain Skin: Bruising Neurological: Weakness - Physical Exam Vital Signs: Temperature 98.1 F Pulse Rate [Left Brachial] 122 Respiratory Rate 22 Blood Pressure [Left Arm] 125/65 O2 Sat by Pulse Oximetry 89 Oriented: Normal Eyes: Normal Ear: Normal Nose: Normal Throat: Normal Respiratory: RML Diminished, RLL Diminished, LML Diminished, LLL Diminished Cardiovascular: Tachycardia, Murmur, Edema : Normal Auscultation: Bowel Sounds: Normal Palpation: Liver Enlarged, Other (DIFFUSE DISTENTION) Tenderness: Diffuse, Mild Skin: Decreased Turgur, Other (DIFFUSE PALLOR) Musculoskeletal: Right, Left, Leg, Back:Thoracic, Back:Lumbar, Motor Deficit, Sensory Deficit Psychiatric: Anxiety Affect: Anxious Speech Pattern: Clear, Appropriate - Assessment/Plan (1) ARF (acute renal failure) Qualifiers: Acute renal failure type: unspecified Qualified Code(s): N17.9 - Acute kidney failure, unspecified Status: Acute (2) Abdominal ascites Status: Acute Plan: ADMIT, ADMISSION LABS. GENTLE IV HYDRATION, STRICT I&OS WITH POLANCO CATH. BLEEDING PRECAUTIONS, PPI THERAPY. OCCULT STOOL, BP MONITORING, GENTLE DIURESIS. IV IRON REPLACEMENT, CXR ON ADMISSION, RESP CONSULTATION FOR SUPPLEMENTAL O2, CONSULT DR DODD FOR POSSIBLE PARACENTESIS (3) Non-alcoholic cirrhosis Status: Acute (4) Anemia Qualifiers: Iron deficiency anemia type: chronic blood loss Status: Acute (5) Diabetes Status: Acute (6) Renal mass Status: Acute (7) Shortness of breath Status: Acute (8) Edema of lower extremity Status: Acute - Allergies Allergies/Adverse Reactions: Allergies Allergy/AdvReac Type Severity Reaction Status Date / Time No Known Drug Allergies Allergy Verified 05/02/22 18:56
[2022-05-13] MEDS: PROTONIX INJ 40 MG VIAL IVP SCH ×2 (17:54→21:30)
[2022-05-13 17:59] VITALS: BMI 28.4
[2022-05-13] MEDS ORDERED: NS 1,000 ML IV 1,000 ML IV SCH (18:00)
[2022-05-13 18:02] LABS: BASOPHILS % (AUTO) 0.4 % (0.2-1.0); EOSINOPHILS % (AUTO) 0.6 % (0.9-2.9); LYMPHOCYTES # (AUTO) 1.3 X10^3/uL (1.3-2.9); LYMPHOCYTES % (AUTO) 15.6 % (21.0-51.0); MEAN CORPUSCULAR HGB CONC 34.3 g/dL (33.0-35.0); WHITE BLOOD COUNT 8.3 X10^3/uL (3.6-10.0)
[2022-05-13 18:06] LABS: HEMATOCRIT 32.3 % (42.0-54.0); HEMOGLOBIN 11.1 g/dL (13.5-18.0); MEAN CORPUSCULAR HEMOGLOBIN 31.3 pg (27.0-34.0); MEAN CORPUSCULAR VOLUME 91.2 fL (80.0-100.0); MEAN PLATELET VOLUME 9.4 fL (7.4-11.0); MONOCYTES # (AUTO) 0.9 x10^3/uL (0.3-0.8); MONOCYTES % (AUTO) 11.2 % (0.0-13.0); NEUTROPHILS % (AUTO) 72.2 % (42.0-75.0); RED BLOOD COUNT 3.54 X10^6/uL (4.7-6.0)
[2022-05-13 18:12] LABS: ANISOCYTOSIS 1+; PLATELET MORPHOLOGY COMMENT NORMAL (NORMAL)
[2022-05-13 18:21] LABS: ALBUMIN 2.1 g/dL (3.4-5.0); CALCIUM 8.6 mg/dL (8.5-10.1); CARBON DIOXIDE 38.1 mmol/L (21-32); COR CA(FOR HYPOALB) 10.1 mg/dL (8.5-10.1); CREATININE 2.09 mg/dL (0.70-1.30); TOTAL PROTEIN 7.2 g/dL (6.4-8.2)
[2022-05-13] MEDS ORDERED: K-DUR TAB 20 MEQ PO ONE (20:00)
--- NOTE | 2022-05-13 20:12 | RAD ---
HISTORYSOB Relevant Clinical InformationSTUDYCHEST, 1 VIEWCOMPARISONCT scan dated 09/30/2021.FINDINGSThe trachea is midline. The cardiac silhouette is mildly enlarged. There is coarsening of the interstitial markings suggestive of scarring or interstitial disease. There is no pleural effusion. The bony thorax is unremarkable.IMPRESSIONCoarsening of the interstitial markings suggesting chronic interstitial lung disease which is present on the comparison CT scan.Electronically signed by: Jose Carlos Thomson (May 13, 2022 20:11:12)
[2022-05-13] MEDS: MAGNESIUM SULFATE 1 GRAM/100 mL PREMIX 1 G/100 ML BAG IV PRN ×4 (20:14→23:44)
[2022-05-14] MEDS: MAGNESIUM SULFATE 1 GRAM/100 mL PREMIX 1 G/100 ML BAG IV PRN ×2 (00:47→01:52)
[2022-05-14 02:13] LABS: BILIRUBIN,URINE 1+ (NEGATIVE); BLOOD/HEMOGLOBIN,URINE NEGATIVE (NEGATIVE); GLUCOSE, URINE NEGATIVE (NEGATIVE); KETONES,URINE NEGATIVE (NEGATIVE); LEUKOCYTE ESTERASE ,URINE NEGATIVE (NEGATIVE); NITRITES,URINE NEGATIVE (NEGATIVE); PROTEIN,URINE NEGATIVE (NEGATIVE); UROBILINOGEN,URINE 2+ (NORMAL)
[2022-05-14 02:22] LABS: APPEARANCE,URINE CLEAR (CLEAR); BACTERIA,URINE NEGATIVE /HPF (NEGATIVE); COLOR,URINE AMBER (YELLOW); RBC,URINE NONE SEEN /HPF (0-3); SQUAMOUS EPITHELIAL CELL,UR RARE /HPF (NEGATIVE)
[2022-05-14 06:01] LABS: BASOPHILS % (AUTO) 0.3 % (0.2-1.0); EOSINOPHILS % (AUTO) 0.5 % (0.9-2.9); HEMATOCRIT 29.2 % (42.0-54.0); LYMPHOCYTES # (AUTO) 1.6 X10^3/uL (1.3-2.9); LYMPHOCYTES % (AUTO) 20.5 % (21.0-51.0); MEAN CORPUSCULAR HEMOGLOBIN 30.9 pg (27.0-34.0); MEAN CORPUSCULAR HGB CONC 34.3 g/dL (33.0-35.0); MEAN CORPUSCULAR VOLUME 90.2 fL (80.0-100.0); MEAN PLATELET VOLUME 9.6 fL (7.4-11.0); MONOCYTES # (AUTO) 0.8 x10^3/uL (0.3-0.8); NEUTROPHILS # (AUTO) 5.5 x10^3/uL (2.2-4.8); NEUTROPHILS % (AUTO) 68.7 % (42.0-75.0); RED BLOOD COUNT 3.24 X10^6/uL (4.7-6.0); WHITE BLOOD COUNT 7.9 X10^3/uL (3.6-10.0)
[2022-05-14 06:19] LABS: PLATELET MORPHOLOGY COMMENT NORMAL (NORMAL)
[2022-05-14 06:20] LABS: ANISOCYTOSIS 1+
[2022-05-14 06:21] LABS: ALBUMIN 1.8 g/dL (3.4-5.0); CALCIUM 8.5 mg/dL (8.5-10.1); CARBON DIOXIDE 38.4 mmol/L (21-32); COR CA(FOR HYPOALB) 10.3 mg/dL (8.5-10.1); CREATININE 1.91 mg/dL (0.70-1.30); MAGNESIUM 2.3 mg/dL (1.7-2.9); TOTAL PROTEIN 6.6 g/dL (6.4-8.2)
[2022-05-14] MEDS ORDERED: NS 100 ML IV 100 ML with VENOFER 400 MG IV NR ×2 (07:00)
[2022-05-14] MEDS: PROTONIX INJ 40 MG VIAL IVP SCH (08:27)
[2022-05-14] MEDS ORDERED: INDERAL TAB 10 MG PO SCH (09:00)
[2022-05-14] MEDS ORDERED: LASIX IVP SCH (09:00)
[2022-05-14] MEDS ORDERED: ULTRAM PO PRN (09:12)
[2022-05-14] MEDS ORDERED: XIFAXAN PO SCH (09:15)
[2022-05-14] MEDS ORDERED: NS + KCL 20 MEQ/L 1,000 ML IV SCH (10:00)
--- NOTE | 2022-05-14 10:16 | CT ---
HISTORYABD DISTENTION, HX RENAL MASSSTUDYCT abdomen pelvis without IV contrastCOMPARISONCT 02/26/2022 and MRI 02/27/2022TECHNIQUEMultiple axial images of the abdomen and pelvis were obtained from the lung bases to the pubic symphysis without the administration of IV contrast. Dose reduction techniques including Automated Exposure Control (AEC) and adjustment of mA and kV were utilized.FINDINGSThe visualized portions of the lung bases reveal probable CHF and pulmonary edema. Multiple small nodules are seen and are highly concerning for metastatic disease. These are larger and appear more numerous than on prior CT exam.Liver has a micronodular contour suggesting cirrhosis. Liver and spleen appear normal in size.There is a soft tissue density nodule in the dependent portion of the gallbladder that could be a poorly calcified stone or an 8 mm polyp. No biliary ductal dilation.No pancreatic abnormality is seen.The adrenal glands appear normal.There is a heterogeneous mass in the mid right kidney. It measures 5.1 x 4.3 x 5.4 cm. It is larger than prior studies where it measured 4.6 x 4.5 x 4.6 cm. It is concerning for renal cell carcinoma. No nephrolithiasis or hydronephrosis is seen bilaterally. No ureteral stones are seen but there is a 6.4 mm bladder stone, similar to prior study.Left-sided colonic diverticula are seen without suggestion of diverticulitis. There is circumferential wall thickening with decreased density in the wall of the ascending colon. This could be colitis. Appendix is not seen. No small bowel dilation is seen. Stomach is not distended and there may be diffuse gastric wall thickening. No esophageal wall thickening is seen.Prostate gland is either absent or very small. There is minimal fatty distention of the inguinal rings.Abdominal aorta is normal in size.No suspicious lymphadenopathy.There is moderate to prominent diffuse ascites that has increased from prior study.There is a probable metastasis within the right iliac wing. There is a soft tissue mass expanding beyond the bone. The mass measures 4.2 x 3.9 cm and is increased in size since prior CT study. Likely small amount of edema is seen deep to the right iliacus muscle.Another probable bony metastasis is seen in the left ischium near the anterior column of the acetabulum. It has slight cortical destruction without soft tissue extension of mass being identified. It measures approximately 2.0 x 1.4 cm. There is mild central and anterior compression deformity of T12 that is slightly worsened since prior exam. This cannot be confirmed as a pathologic fracture, though.IMPRESSIONMild increase in size of right renal mass, probable renal cell carcinoma.Increasing size of metastasis in the right iliac wing and probable new bony metastasis in the anterior column of the left acetabulum. Recommend further evaluation with nuclear medicine bone scan to assess for other bony metastases.Slight worsening of 15 percent compression deformity of T12 since prior CT. This cannot be confirmed as a pathologic fracture, though.Possible wall thickening in the ascending colon could be colitis but may be reaction to the worsening moderate to prominent ascites. Gastritis changes cannot be excluded.Worsening small lung nodules are probable metastases.Electronically signed by: Jose Merida (May 14, 2022 10:14:36)
[2022-05-14 11:39] VITALS: BP 145/73
== END 2022-05-14 15:20 | disposition home health service (06) ==
LOC: MED/SURG
PROVIDERS: ADMIT Internal Medicine; ATTEND Internal Medicine
DX: C79.51 Secondary malignant neoplasm of bone; R79.89 Other specified abnormal findings of blood chemistry; R18.8 Other ascites; I10 Essential (primary) hypertension; K21.9 Gastro-esophageal reflux disease without esophagitis; C64.9 Malignant neoplasm of unspecified kidney, except renal pelvis; R26.89 Other abnormalities of gait and mobility; D50.8 Other iron deficiency anemias; N17.8 Other acute kidney failure; R06.02 Shortness of breath; Z20.822 Contact with and (suspected) exposure to COVID-19; R94.31 Abnormal electrocardiogram [ECG] [EKG]; K72.90 Hepatic failure, unspecified without coma; R53.1 Weakness; K74.69 Other cirrhosis of liver; D62 Acute posthemorrhagic anemia; E11.65 Type 2 diabetes mellitus with hyperglycemia